=== PATIENT | female | born 1985 | race Caucasian/White ===

== ENCOUNTER → 2020-06-22 14:57 | Outpatient (CLI) | payer OTHER, MEDICAID, SELFPAY ==
--- NOTE | 2020-06-22 14:59 | DI.US.S_ITS ---
LIMITED ULTRASOUND OF LEFT BREAST: 06/22/2020 CLINICAL: Patient returns today to evaluate a focal asymmetry in the left breast and left palpable lump. Comparison is made to exam dated: 06/22/2020 [facility]. Color flow and real-time ultrasound of the left breast were performed. Clark scale images of the real-time examination were reviewed. There is a 1.2 cm x 1.2 cm x 0.5 cm cluster of irregular cysts with a septated internal wall in the left breast at 3 o'clock middle depth 2 cm from the nipple. THis is found within dense fibrocystic tissue. This cluster of irregular cysts displays posterior acoustic enhancement. This correlates smaller than estimated on mammography and closer to the nipple than expected. Color flow imaging demonstrates that there is no vascularity present. IMPRESSION: PROBABLY BENIGN The 1.2 cm cluster of cysts in the left breast may or may not correlate with the mammographic abnormality, but most likely is fibrocystic tissue, less likely apocrine metaplasia or a complicated cyst and is probably benign. A follow-up ultrasound in 6 months is recommended. There is no abnormality seen in the left breast to correspond with the palpable abnormality at 5 o'clock. Findings and recommendations were conveyed to the patient at time of exam. This exam was interpreted at Station ID: [id number]. Electronically Signed By: Elsy hopper/:06/23/2020 17:11:39 letter sent: Followup Recommended Ultrasound BI-RADS: 3 Probably benign
--- NOTE | 2020-06-22 14:59 | DI.MG.S_ITS ---
BILATERAL DIGITAL DIAGNOSTIC MAMMOGRAM 3D/2D: 06/22/2020 CLINICAL: Left breast lump. Baseline exam. No prior exams were available for comparison. The tissue of both breasts is heterogeneously dense. This may lower the sensitivity of mammography. There is a 1.9 cm oval high density asymmetry with an indistinct margin in the right breast at 11 o'clock middle depth. This is seen in additional views. There is a 1.6 cm oval equal density asymmetry with an obscured margin in the left breast at 1 o'clock middle depth. Finding is seen only on tomography. No other significant masses or calcifications are seen in either breast. IMPRESSION: INCOMPLETE: NEEDS ADDITIONAL IMAGING EVALUATION The 1.6 cm asymmetry in the left breast at 1 o'clock middle depth is indeterminate. An ultrasound is recommended. This was performed immediately following this exam. There is no abnormality seen in the left breast to correspond with the palpable abnormality at 6 o'clock in the middle depth. Ultrasound is recommended for full evaluation of this area. This was performed immediately following this exam. The 1.9 cm asymmetry in the right breast at 11 o'clock middle depth is indeterminate. An ultrasound is recommended. This could not be performed today and will be scheduled as soon as possible. This exam was interpreted at Station ID: [id number]. NOTE: For mammograms, a report in lay terms will be sent to the patient. Approximately 15% of breast malignancies will not be visualized mammographically. In the management of a palpable breast mass, a negative mammogram must not discourage biopsy of a clinically suspicious lesion. Electronically Signed By: Elsy hopper/:06/23/2020 17:13:33 letter sent: Need Ultrasound ACR BI-RADS Category 0: Incomplete [id number]
== END ==
PROVIDERS: Referring Provider Obstetrics & Gynecology; Visit Provider Obstetrics & Gynecology
DX: R92.8 Other abnormal and inconclusive findings on diagnostic imaging of breast (principal); N60.02 Solitary cyst of left breast
CPT/HCPCS: 76642; 77066; G0279

== ENCOUNTER → 2020-06-25 12:46 | Outpatient (CLI) | payer OTHER, MEDICAID, SELFPAY ==
--- NOTE | 2020-06-25 12:47 | DI.US.S_ITS ---
LIMITED ULTRASOUND OF RIGHT BREAST: 06/25/2020 CLINICAL: Patient returns today to evaluate a focal asymmetry in the right breast. Comparison is made to exam dated: 06/22/2020 [facility]. Color flow and real-time ultrasound of the right breast 11 o'clock region were performed. Clark scale images of the real-time examination were reviewed. No suspicious finding. IMPRESSION: NEGATIVE There is no sonographic evidence of malignancy. This exam was interpreted at Station ID: [id number]. Electronically Signed By: Hardeep Li M.D. jr/:06/25/2020 13:10:52 letter sent: Normal Exam Ultrasound BI-RADS: 1 Negative
== END ==
PROVIDERS: Referring Provider Obstetrics & Gynecology; Visit Provider Obstetrics & Gynecology
DX: R92.8 Other abnormal and inconclusive findings on diagnostic imaging of breast (principal)
CPT/HCPCS: 76642

== ENCOUNTER → 2021-03-29 11:09 | Outpatient (CLI) | payer OTHER, SELFPAY ==
--- NOTE | 2021-03-29 | DI.US.S_ITS ---
LIMITED ULTRASOUND OF LEFT BREAST: 03/29/2021 CLINICAL: 6 month follow-up of cysts. Comparison is made to exams dated: 06/25/2020 ultrasound, 06/22/2020 mammogram, and 06/22/2020 ultrasound - [facility]. Color flow and real-time ultrasound of the left breast 3 o'clock and 5 o'clock regions were performed on the areas of interest. There is a 1 cm x 0.4 cm x 0.5 cm cluster of oval cysts with a septated internal wall in the left breast at 3 o'clock anterior depth 2 cm from the nipple. This cluster of oval cysts is hypoechoic with posterior acoustic enhancement. These abnormalities are decreased in size and likely correlates with mammography findings. Color flow imaging demonstrates that there is no vascularity present. IMPRESSION: PROBABLY BENIGN The 1 cm x 0.4 cm x 0.5 cm cluster of oval cysts in the left breast is probably benign. Follow-up mammogram and ultrasound in 6 months are recommended. There is no abnormality seen in the left breast to correspond with the persistent palpable abnormality at 5 o'clock, however, clinical followup is recommended. A follow-up mammogram and an ultrasound in 6 months are recommended to demonstrate stability. Patient will be due for mammography of the contralateral breast at that time. This exam was interpreted at Station ID: [id number]. Electronically Signed By: Chino varma/:03/29/2021 12:06:36 letter sent: Followup Recommended Ultrasound BI-RADS: 3 Probably benign
== END ==
PROVIDERS: Referring Provider Obstetrics & Gynecology; Visit Provider Obstetrics & Gynecology
DX: R92.8 Other abnormal and inconclusive findings on diagnostic imaging of breast (principal); N63.23 Unspecified lump in the left breast, lower outer quadrant; N60.02 Solitary cyst of left breast
CPT/HCPCS: 76642

== ENCOUNTER → 2021-05-03 11:56 | Outpatient (CLI) | payer OTHER, SELFPAY ==
[2021-05-03 12:24] LABS: Add Manual Diff / Slide Review NO; Basophils Absolute Auto 0 /uL (0-100); Basophils Percent Auto 0.7 % (0-2); Eosinophils Absolute Auto 100 /uL (0-450); Eosinophils Percent Auto 0.9 % (2-4); Hematocrit 40.3 % (36-46); Hemoglobin 13.5 g/dL (12.0-16.0); Lymphocytes Absolute Auto 2000 /uL (1100-4500); Lymphocytes Percent Auto 34.9 % (25-40); Mean Corpuscular HGB Conc 33.4 % (30-36); Mean Corpuscular Hemoglobin 32.3 PG (26-34); Mean Corpuscular Volume 96.7 fL (80-100); Monocytes Absolute Auto 400 /uL (0-900); Monocytes Percent Auto 6.4 % (3-14); Neutrophils Absolute Auto 3200 /uL (1500-7000); Neutrophils Percent Auto 57.1 % (50-75); Platelet Count 240 X10^3/uL (150-400); Red Blood Cell Count 4.17 X10^6/uL (4.0-5.2); Red Cell Distribution Width 13.2 % (11.6-14.8); White Blood Cell Count 5.6 X10^3/uL (4.5-11.0)
[2021-05-03 13:20] LABS: Rubella Antibody IgG 11.3 IU/mL (>15)
[2021-05-03 13:42] LABS: TSH w/ Reflex to FT4 1.17 uIU/mL (0.47-4.68)
[2021-05-04 08:43] LABS: Varicella IgG Antibody <135 index (Immune >165)
[2021-05-04 13:23] LABS: Mumps Virus IgG Antibody <9.0 AU/mL (Immune >10.9)
== END ==
PROVIDERS: Referring Provider Obstetrics & Gynecology; Visit Provider Obstetrics & Gynecology
DX: Z31.69 Encounter for other general counseling and advice on procreation (principal)
CPT/HCPCS: 36415; 84443; 85025; 86735; 86762; 86765; 86787

== ENCOUNTER → 2021-11-08 12:03 | Outpatient (CLI) | payer OTHER, SELFPAY ==
[2021-11-08 14:12] LABS: HCG Quantitative /Beta subunit 14332 mIU/mL
== END ==
PROVIDERS: Referring Provider Obstetrics & Gynecology; Visit Provider Obstetrics & Gynecology
DX: O36.80X0 Pregnancy with inconclusive fetal viability, not applicable or unspecified (principal)
CPT/HCPCS: 36415; 84702

== ENCOUNTER → 2021-11-10 14:10 | Outpatient (CLI) | payer OTHER, SELFPAY ==
[2021-11-10 20:20] LABS: HCG Quantitative /Beta subunit 12701 mIU/mL
== END ==
PROVIDERS: PCP Obstetrics & Gynecology; Visit Provider Obstetrics & Gynecology
DX: O36.80X0 Pregnancy with inconclusive fetal viability, not applicable or unspecified (principal)
CPT/HCPCS: 84702

== ENCOUNTER → 2021-11-14 13:41 | Outpatient (CLI) | payer OTHER, SELFPAY ==
[2021-11-14 14:53] LABS: Appearance Urine UA CLEAR; Bilirubin Urine UA NEGATIVE (NEGATIVE); Color Urine UA YELLOW; Glucose Urine UA NEGATIVE (Negative); Ketones Urine UA NEGATIVE (NEGATIVE); Leukocyte Esterase Urine UA 2+ (NEGATIVE); Nitrite Urine UA NEGATIVE (Negative); Occult Blood Urine UA 2+ (Negative); Protein Urine UA NEGATIVE (Negative); Specific Gravity Urine UA 1.025 (1.000-1.035); Urobilinogen Urine UA 0.2 E.U./dL (0.2)
[2021-11-14 14:56] LABS: Add Manual Diff / Slide Review NO; Basophils Absolute Auto 0 /uL (0-100); Basophils Percent Auto 0.7 % (0-2); Eosinophils Absolute Auto 100 /uL (0-450); Eosinophils Percent Auto 0.9 % (2-4); Hematocrit 39.7 % (36-46); Hemoglobin 13.9 g/dL (12.0-16.0); Lymphocytes Absolute Auto 2000 /uL (1100-4500); Lymphocytes Percent Auto 32.1 % (25-40); Mean Corpuscular HGB Conc 35.1 % (30-36); Mean Corpuscular Hemoglobin 32.3 PG (26-34); Monocytes Absolute Auto 400 /uL (0-900); Neutrophils Absolute Auto 3800 /uL (1500-7000); Neutrophils Percent Auto 60.3 % (50-75); Platelet Count 255 X10^3/uL (150-400); Red Blood Cell Count 4.31 X10^6/uL (4.0-5.2); Red Cell Distribution Width 12.9 % (11.6-14.8); White Blood Cell Count 6.3 X10^3/uL (4.5-11.0)
[2021-11-14 15:07] LABS: Amorphous Sediment Urine 1+; Bacteria Urine Occasional (0-1); RBC Urine 1-5/HPF (0-5/HPF); Squamous Epithelial Cell Urine 5-10 /HPF (0-5/HPF); WBC Urine 5-10/HPF (0-5/HPF)
[2021-11-14 15:29] LABS: HCG Quantitative /Beta subunit 8751.6 mIU/mL
[2021-11-14 17:39] LABS: HIV 1 & 2 Ab/Ag 4th Gen Combo NEGATIVE (NEGATIVE); Hep C Virus Ab w/Reflex Quant NEGATIVE s/c (NEGATIVE); Hepatitis B Surface Antigen NEGATIVE s/c (NEGATIVE); Rubella Antibody IgG 84.3 IU/mL (>15)
[2021-11-15 06:29] LABS: RPR Screen Non Reactive (Non Reactive)
[2021-11-15 07:18] LABS: Varicella IgG Antibody <135 index (Immune >165)
== END ==
PROVIDERS: Referring Provider Obstetrics & Gynecology; Visit Provider Obstetrics & Gynecology
DX: O36.80X0 Pregnancy with inconclusive fetal viability, not applicable or unspecified (principal)
CPT/HCPCS: 36415; 80055; 81003; 81015; 84702; 86787; 86803; 86850; 86900; 86901; 87086; 87389

== ENCOUNTER 2021-11-19 08:06 | Day surgery (SDC) | payer OTHER, SELFPAY ==
[2021-11-17 14:21] VITALS: BMI 29.2
[2021-11-19] VITALS (7 sets, daily range): BP systolic 88–102; BP diastolic 53–64; PULSE 61–74; RESP 15–26; TEMP 36.4–36.7; O2SAT 97–100; BMI 29.2
--- NOTE | 2021-11-19 | PATH_ITS ---
[facility] Accession Number: [id number] . 01 Material submitted: . product of conception - PRODUCTS OF CONCEPTION . 01 Diagnosis: Uterine Contents: Immature chorionic villi with hydropic degeneration and decidual tissues. Negative for changes diagnostic of gestational trophoblastic disease. MRV 11/23/2021 1712 Local . 01 Electronically signed: . Padmaja Strange MD, Pathologist NPI- [id number] . 01 Gross description: . Received in formalin labeled with the patient's name and products of conception consist of multiple fragments of rausch variable membranous spongy soft tissue admixed with a small amount of hemorrhagic material aggregating to 6.2 x 5.3 x 1.2 cm. No tissue is identified. [employer] sections are submitted in cassettes A1-A2. ([id number]) /MRV 11/22/2021 1629 Local . 01 Pathologist provided ICD-10: O02.1 . 01 CPT . 134048 Specimen Comment: A courtesy copy of this report has been sent to [facility] Pathology Performed at: 01 [facility] [address] [place] [address], [place], [place] [id number] MD Chino Solano MD Phone: [phone]
--- NOTE | 2021-11-19 08:22 | SUR.OPER ---
Lithotomy on padded OR bed, head on pillow, arms secured on padded arm boards at <90 degrees abduction. Legs secured in padded yellow fins stirrups.
[2021-11-19] MEDS: LACTATED RINGERS 1,000 ML 42 ML IV (08:33)
[2021-11-19 08:38] LABS: COVID19 -Nasal RAPID Negative (Negative)
--- NOTE | 2021-11-19 08:58 | PM.GYNHP.1 ---
History of Present Illness History of Present Illness Reason for admission: missed Narrative: Jocelyn Flowers is a 36 year old female who is being admitted for a suction D&C for first-trimester missed Ab, miscarriage. She conceived by way of IUI. Ultrasound had shown a 6 week pole with absence of cardiac activity and follow-up HCGs were also dropping consistent with a miscarriage. She was scheduled for Tuesday 11/21 but started having cramping and some bleeding, more than spotting, and thus her procedure is moved up to today, to help prevent going through spontaneous miscarriage [place]. [place] if [place] started having heavy bleeding or hemorrhage with a spontaneous miscarriage, it would take a long time to be able to get to a hospital and no where to go at night for her to be transported. [facility] Medical History Abnormal Pap smear of cervix (~1999) Acne (2005) Anemia (1997) Anxiety (1999) Chronic back pain (~2006) COVID-19 (~2019) Depression (1999) Encounter for preconception consultation Fibroids (~2009) Gastric ulcer GERD (gastroesophageal reflux disease) (~1999) Headache (~1999) Heavy menstrual period (~2006) History of hemorrhoids (~1999) Human papilloma virus (~2006) IBS (irritable bowel syndrome) (~1999) Irregular menstrual cycle (~2006) Menorrhagia with irregular cycle MRSA (methicillin resistant Staphylococcus aureus) (2009) Ovarian cyst (~1999) Painful menstrual periods (~1999) PCOS (polycystic ovarian syndrome) Scoliosis (~2002) Tinnitus (~2009) Surgical History Anesthesia History of third molar tooth extraction (2002) Status post appendectomy (2004) Family History (Updated 11/01/21 @ 18:54 by Iliana Fritz) Father Age: 73 Prostate cancer Hypertension Skin cancer Emphysema lung COPD (chronic obstructive pulmonary disease) Hyperlipidemia Mental health problem Colostomy present Brother Adopted (not a blood relative) Mother Hypertension Ulcerative colitis Crohn's colitis Hero's thyroiditis Vascular disease Raynaud's disease Hyperlipidemia Grandmother Heart disease Hyperlipidemia Stroke Vascular disease Grandfather Heart disease Hypertension Hyperlipidemia Mental health problem Stroke Vascular disease Grandfather Heart disease Myocardial infarction Lung cancer Mental health problem History of heart attack Grandmother Hyperlipidemia Mental health problem Brain tumor Parkinson's disease Social History marital status: number of children: 0 household members: spouse lives independently: Yes pets and animals: Yes (2 dogs, 2 cat, 14 chickens, bees) education level: college ([employer] degree) occupational status: employed ([employer]) current occupational exposures/hazards: Yes (Physical hazzards mostly) special gibson needs: No travel history: recent ([place]) seatbelt use: always water heater temp set < 120 deg: No (Will adjust ) working smoke detector in home: Yes fire extinguisher in home: Yes carbon monox detector in home: Yes firearms in home: No do you feel safe at home: Yes Smoking Status: Former smoker second hand exposure: Yes ( smokes and so do several friends.) alcohol intake: former substance use type: marijuana (not while ) during the past year weight has: remained stable well-balanced diet: daily or most days daily servings fruits/ve-4 caffeine: Yes (Aware of 200mg limit) Type(s) of exercise: none additional social history: Encouraged to start gentle exercise Meds Home Medications and Allergies Home Medications Medication Instructions Recorded Confirmed Type trazodone 50 mg tablet 100 mg PO BEDTIME 09/24/19 11/19/21 History prenat.vits,sintia,vwz-ozhy-zpzsx 1 tab PO DAILY 10/24/21 11/19/21 History citalopram 20 mg tablet (Celexa) 20 mg PO DAILY #30 tabs 11/15/21 11/19/21 Rx progesterone micronized 200 mg 200 mg PO .COMPLEX #30 caps 11/15/21 11/19/21 Rx capsule Allergies Allergy/AdvReac Type Severity Reaction Status Date / Time Sulfa (Sulfonamide Allergy Severe Gallardo-Brennen Verified 11/19/21 08:09 Antibiotics) Syndrome [SULFA (SULFONAMIDE ANTIBIOTICS)] venom-honey bee Allergy Severe Anaphylaxis Verified 11/19/21 08:09 Exam Vital Signs (past 8 hours): - 11/19/21 08:29 Temperature 98.1 F Pulse Rate 72 Respiratory Rate 20 Blood Pressure 102/61 Pulse Oximetry 98 Oxygen Delivery Method Room Air Oxygen Delivery Method Room Air Const General: cooperative, healthy appearing, comfortable and well developed Chest Chest: normal inspection of the chest Resp Effort & Inspection: normal respiratory effort Cardio Rate: regular rate Objective Labs Labs: Laboratory Results - last 24 hr 11/19/21 08:20 SARS-CoV-2 (PCR) Negative Assessment & Plan Assessment and plan (1) Missed ab: Status: Acute Assessment & Plan narrative: Patient desires proceeding with D&C for removal of miscarriage, rather than go through a spontaneous miscarriage, due to risk of heavy bleeding or cramping with spontaneous ab and living in a remote location without a hospital. Agree with decision, to avoid risk of [place] I reviewed suction dilatation curettage procedure. Reviewed risks of the procedure, including bleeding, infection, uterine perforation with risk of injury to adjacent organs including bowel and bladder. Discussed risk of intrauterine scarring, Asherman syndrome with risk of infertility. Also discussed risk of retained tissue with risk of passing some of the tissue subsequently on her own or risk of needing a repeat procedure. She desires to proceed today. Verbal and written consent obtained. She had recent lab work. Medical history, medications and allergies reviewed. Time Spent With Patient Critical Care time: I spent a total of [] minutes of critical care time on this patient's care today; this time is exclusive of procedural time.
--- NOTE | 2021-11-19 09:47 | P.OP_ITS ---
Operative Date/Time/Diagnoses Date of procedure: 11/19/21 Time of procedure: 09:30 Pre-op diagnosis: missed ab at 6 weeks Post-op diagnosis: same Procedure & Clinicians Procedure: suction dilatation and curettage Same procedure as scheduled: Yes Indications: Missed Ab at 6 weeks 36-year-old G1 female diagnosed with a missed ab, missed miscarriage, at 6 weeks and she desired undergoing D&C for removal the miscarriage, rather than risk heavy bleeding, hemorrhage on attempting to pass miscarriage on her own since she lives on [facility], not near any hospital and length of time it would take to get off the [place]. Surgeon: Jesscia Gee Click Yes if Unassisted: Yes Anesthesia Type: General Operative Notes Findings: On bimanual examination, anteverted fibroid uterus appreciated, approximately 12 cm size uterus, with palpable right-sided uterine fibroid. After the procedure, uterus was hunter down well, uterine size now palpated to be approximately 10 cm size. Specimen(s): other (products of conception) Estimated Blood Loss (mL): 100 Blood products transfused: none Procedure in detail: After being properly identified she was transferred to the operating room. After an adequate level of general anesthesia was obtained she was placed in Nikolas stirrups in the dorsal lithotomy position. Bimanual examination was performed. She was prepped and draped in routine sterile fashion. Her bladder was not drained as she voided just prior to coming back to the OR. An open-sided speculum was placed and the cervix was grasped with a single-tooth tenaculum. The cervix was sterilely dilated to a 10 cm. A number 9 curved suction curette, the smallest curet available, was placed. Suction curettage was performed for a small to moderate amount of tissue. The tissue did appear consistent with products of conception. No further tissue was obtained after the 2nd pass. A metal curette was placed and gentle curettage revealed there to be no further products of conception. The suction curette was placed one last time and some residual fluid and clot was removed. The tenaculum was removed. There was some light bleeding from the left tenaculum site which ceased after pressure with an Allis clamp. Good hemostasis and remain, there was only some m inimal blood through the cervical os. The procedure was ended. She tolerated the procedure well and went to recovery room stable condition. Complications: none Post-operative Condition: stable Disposition: PACU Plan for aftercare: follow-up tele-health appt in 1-2 weeks
== END 2021-11-19 10:35 | disposition home or self-care (01) ==
PROVIDERS: Obstetrics & Gynecology; Referring Provider Obstetrics & Gynecology; Visit Provider Obstetrics & Gynecology
PROC: (CPT 58120; principal; 2021-11-19 09:00)
DX: O02.1 Missed abortion (principal); Z3A.01 Less than 8 weeks gestation of pregnancy; Z20.822 Contact with and (suspected) exposure to COVID-19
CPT/HCPCS: 59820; 87635; J1100; J1885; J2250; J2405; J2704; J3010

== ENCOUNTER → 2023-01-02 15:21 | Outpatient (CLI) | payer OTHER, SELFPAY ==
[2023-01-02 16:14] LABS: Add Manual Diff / Slide Review NO; Basophils Absolute Auto 0 /uL (0-100); Basophils Percent Auto 0.5 % (0-2); Eosinophils Absolute Auto 0 /uL (0-450); Eosinophils Percent Auto 0.6 % (2-4); Hematocrit 40.7 % (36-46); Hemoglobin 14.1 g/dL (12.0-16.0); Lymphocytes Absolute Auto 2000 /uL (1100-4500); Lymphocytes Percent Auto 23.4 % (25-40); Mean Corpuscular HGB Conc 34.6 % (30-36); Mean Corpuscular Hemoglobin 32.1 PG (26-34); Mean Corpuscular Volume 92.7 fL (80-100); Monocytes Absolute Auto 600 /uL (0-900); Monocytes Percent Auto 6.4 % (3-14); Neutrophils Absolute Auto 6000 /uL (1500-7000); Neutrophils Percent Auto 69.1 % (50-75); Platelet Count 278 X10^3/uL (150-400); Red Blood Cell Count 4.39 X10^6/uL (4.0-5.2); Red Cell Distribution Width 12.8 % (11.6-14.8); White Blood Cell Count 8.7 X10^3/uL (4.5-11.0)
[2023-01-02 16:17] LABS: Hemoglobin A1C% w Est Avg Glu 4.7 % (4.0-6.0)
[2023-01-02 17:14] LABS: Hepatitis B Surface Antigen NEGATIVE s/c (NEGATIVE); Rubella Antibody IgG 51.9 IU/mL (>15)
[2023-01-02 17:28] LABS: HIV 1 & 2 Ab/Ag 4th Gen Combo NEGATIVE (NEGATIVE); Hep C Virus Ab w/Reflex Quant NEGATIVE s/c (NEGATIVE)
[2023-01-03 05:54] LABS: RPR Screen Non Reactive (Non Reactive)
[2023-01-03 12:56] LABS: Varicella IgG Antibody <135 index (Immune >165)
== END ==
PROVIDERS: Referring Provider Specialist; Visit Provider Specialist
DX: Z34.81 Encounter for supervision of other normal pregnancy, first trimester (principal)
CPT/HCPCS: 36415; 80055; 83036; 86787; 86803; 86850; 86900; 86901; 87389

== ENCOUNTER → 2023-01-30 11:29 | Outpatient (CLI) | payer OTHER, SELFPAY ==
[2023-01-30 16:58] LABS: Urine N gonorrhoeae NOT DETECTED
[2023-01-30 17:37] LABS: Urine Chlamydia NOT DETECTED
== END ==
PROVIDERS: Referring Provider Student in an Organized Health Care Education/Training Program; Visit Provider Student in an Organized Health Care Education/Training Program
DX: Z34.01 Encounter for supervision of normal first pregnancy, first trimester (principal); Z34.81 Encounter for supervision of other normal pregnancy, first trimester
CPT/HCPCS: 87086; 87491; 87591

== ENCOUNTER → 2023-03-07 12:02 | Outpatient (CLI) | payer OTHER, SELFPAY ==
[2023-03-09 22:09] LABS: AFP Value 35.8 ng/mL (.); Insulin Dep Diabetes No (.); OSBR Risk 1IN 10000 (.); Results Report (.); Test Results *Screen Negative* (.)
== END ==
PROVIDERS: Referring Provider Student in an Organized Health Care Education/Training Program; Visit Provider Student in an Organized Health Care Education/Training Program
DX: Z34.02 Encounter for supervision of normal first pregnancy, second trimester (principal); Z3A.18 18 weeks gestation of pregnancy
CPT/HCPCS: 36415; 82105

== ENCOUNTER → 2023-03-22 11:01 | Outpatient (CLI) | payer OTHER, SELFPAY ==
--- NOTE | 2023-03-22 11:03 | DI.US.S_ITS ---
PROCEDURE: US OB >= 14 WEEKS FETUS INDICATIONS: 20 WEEK ANATOMY OUTSIDE/PRIOR DATING DATA: Last menstrual period (LMP): 11/01/2022. LMP-based estimated date of delivery (FARZANEH): 08/08/2023. First dating scan (date and location): 01/02/2023. Estimated date of delivery (FARZANEH) from first dating scan: 08/13/2023. TECHNIQUE: Real-time scanning was performed of the fetus, with image documentation and biometric measurements. Endovaginal scanning: Yes COMPARISON: None. FINDINGS: General: A single living intrauterine gestation is present. Presentation: Breech. Placenta: Placental position is posterior , without previa. Amniotic fluid index: 10.6 cm, normal range is 5-24 cm. Single deepest vertical pocket is 3.4 cm. heart rate: 152 beats per minute. Maternal cervical canal: 4.3 cm long. Normal lower limit is 2.5 cm. biometrics: Biparietal diameter: 49 mm; 20 weeks 5 days Head circumference: 178 mm; 20 weeks 2 days Abdominal circumference: 152 mm; 20 weeks 3 days Femur length: 33 mm; 20 weeks 1 day Clinically estimated gestational age: 20 weeks 1 day Composite gestational age from present scan: 20 weeks 3 days Estimated weight and percentile: 345 g which is at the 55th percentile for gestational age Anatomic survey: Neuro: Ventricles are non-dilated at less than 10 mm. Cisterna magna is normal at 3-11 mm. Cerebellum is normal in size and morphology. Nuchal skin fold: Normal at less than 6 mm between 14-21 weeks gestational age. Face: Nose and lips, facial profile are normal. Spine: No evidence for spina bifida. Heart: 4-chambered heart is present, with normal ventricular outflow tracts. Diaphragm: Diaphragm is intact. Stomach: Left-sided stomach is present. Kidneys: No hydronephrosis. Normal is less than 5 mm in 2nd trimester, less than 7 mm in 3rd trimester. Cord: 3-vessel cord has orthotopic insertion. Bladder: Normal in size. Extremities: All 4 extremities identified. IMPRESSION: 1. Single living intrauterine gestation. 2. Normal survey of anatomy. We strive to produce accurate, complete, and clear reports of imaging services. To assist us in improving patient care, this report was composed using standard report templates and voice recognition software. Therefore, it may contain abnormal punctuation, insertions and/or omissions. Occasional wrong-word or sound-alike substitutions may occur. Though we review the report and make efforts to correct it, we do recommend that the report be read carefully in proper context to recognize any text inaccuracies. Dictated by: Becka Kamara M.D. on 03/22/2023 at 13:27 Approved by: Becka Kamara M.D. on 03/22/2023 at 13:29
== END ==
PROVIDERS: Referring Provider Student in an Organized Health Care Education/Training Program; Visit Provider Student in an Organized Health Care Education/Training Program
DX: Z34.02 Encounter for supervision of normal first pregnancy, second trimester (principal); Z3A.20 20 weeks gestation of pregnancy
CPT/HCPCS: 76811; 76817